=== PATIENT | female | born 1960 | race Caucasian/White ===

== ENCOUNTER 2016-11-13 06:10 | Emergency (ER) | payer MEDICARE ==
[~2016-11-13] VITALS: Ht 160 cm; Wt 90.7 kg
[2016-11-13] MEDS ORDERED: IV NORMAL SALINE 500ML BAG 500 ML IV ONE ×2 (06:30→07:45)
--- NOTE | 2016-11-13 06:46 | EKG ---
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
[2016-11-13 06:58] LABS: BASO # 0.1 x10^3/uL (0.0-0.2); BASO % 1 % (0-3); EOS % 0 % (0-3); HEMATOCRIT 31.1 % (36.0-47.0); HEMOGLOBIN 10.2 g/dL (12.0-15.5); LYMPH # 1.7 x10^3/uL (1.0-4.8); LYMPH % 17 % (24-48); MEAN CORPUSCULAR HEMOGLOBIN 30 pg (25-35); MEAN CORPUSCULAR HGB CONC 33 g/dL (31-37); MEAN CORPUSCULAR VOLUME 93 fL (79-100); MONO % 5 % (0-9); NEUT % 77 % (31-73); PLATELET COUNT 164 x10^3/uL (140-400); RED BLOOD COUNT 3.35 x10^6/uL (3.50-5.40); RED CELL DISTRIBUTION WIDTH 15.6 % (11.5-14.5)
[2016-11-13 07:08] LABS: OBC FLU VALID
[2016-11-13 07:12] LABS: CALCIUM 9.4 mg/dL (8.5-10.1); CREATININE 1.4 mg/dL (0.6-1.0); GFR 38.9; MAGNESIUM 1.9 mg/dL (1.8-2.4); POTASSIUM 4.1 mmol/L (3.5-5.1)
--- NOTE | 2016-11-13 07:20 | RAD ---
EXAM: Chest one view. HISTORY: Dyspnea. COMPARISON: 10/21/2008. FINDINGS: A frontal view of the chest is obtained. A left-sided pacer/defibrillator has its leads in the right atrium and right ventricle. There are changes of coronary artery bypass grafting. There is rotation to the left. There are mild diffuse interstitial opacities suggesting mild pulmonary edema. There is no pneumothorax or clear pleural effusion. The heart is not clearly enlarged given this projection. There is a calcified granuloma in the left base. IMPRESSION: 1. Suspect mild pulmonary edema. Correlate with volume status.
--- NOTE | 2016-11-13 07:41 | EKG ---
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 RI6.01 Unconfirmed report No previous ECG available for comparison Electronically Signed On 11-13-2016 14:18:10 REGISTERED NURSE AMBULATORY by Ramos Baca
--- NOTE | 2016-11-13 07:50 | PHYS DOC ---
Past Medical History Past Medical History: Anemia (iron def), CAD, CHF (ICM, combined failure, EF 35 %), Diabetes-Type II (with neuropathy), DVT (bilateral LE on coumadin), Pancreatitis (chronic), Renal Disease Additional Past Medical Histor: atherosclerosis, CKD, PAD, hyperparathyroid, legally blind Past Surgical History: Coronary Bypass Surgery, Pacemaker (ICD) Additional Past Surgical Histo: right toes amputated, Right femur ORIF Smoking: Cigarettes Alcohol Use: None Drug Use: None Adult General Chief Complaint Chief Complaint: SHORTNESS OF BREATH HPI HPI Patient is a 55 year old female with multiple medical problems who presents by EMS from nursing facility for an episode of nonbloody nonbilious emesis followed by confusion and dyspnea. She was noted to be in 80s at nursing facility. She states she wears 3L NC chronically and she was placed on 4L NC by EMS to improve O2 sats >90. She complains of mild nausea and crampy lower abdominal pain "like she needs to use the restroom". She was released from [facility] multiple times recently according to a note brought from nursing facility: 10/2016 after starting coumadin for bilateral LE DVTs; had right femur ORIF in 09/2016; and had admit for chest pain with elevated troponin and nonacute heart cath in 08/2016. She denies chest pain, cough, rhinorrhea, dyspnea, sore throat , headache, back pain, diarrhea, constipation. States her urinary catheter was changed this week. Review of Systems Review of Systems Constitutional: Denies fever or chills [] Eyes: Denies change in visual acuity, redness, or eye pain [] HENT: Denies nasal congestion or sore throat [] Respiratory: Denies cough or shortness of breath [] Cardiovascular: No additional information not addressed in HPI [] GI: Denies bloody stools or diarrhea [] : Denies dysuria or hematuria [] Musculoskeletal: Denies back pain or joint pain [] Integument: Denies rash or skin lesions [] Neurologic: Denies headache, focal weakness or sensory changes [] Endocrine: Denies polyuria or polydipsia [] Current Medications Current Medications Current Medications Medications (Trade) Dose Ordered Sig/Yosvany Start Time Stop Time Status Last Admin Dose Admin Sodium Chloride (Iv Sodium Chloride 0.9% 500ml Bag) 500 ml @ 500 mls/hr 1X ONCE 3/6/17 07:45 11/13/16 08:44 DC 11/13/16 08:47 500 MLS/HR Allergies Allergies Allergies Coded Allergies Type Severity Reaction Last Updated Verified adhesive tape Allergy Unknown 11/13/16 Yes lisinopril Allergy Unknown 11/13/16 Yes Physical Exam Physical Exam Constitutional: Well developed, well nourished, no acute distress, non-toxic appearance. [] HENT: Normocephalic, atraumatic, bilateral external ears normal, oropharynx moist, nose normal. [] Eyes: PERRLA, EOMI. [] Neck: Normal range of motion, no tenderness, supple, no stridor. [] Cardiovascular: Regular tachycardia [] Lungs & Thorax: Bilateral breath sounds clear to auscultation, normal respiratory effort [] Abdomen: Bowel sounds normal, soft, no tenderness. [] Skin: Warm, dry, no erythema, no rash. [] Back: No tenderness, no CVA tenderness. [] Extremities: ROM intact, 1+ bilateral LE edema. [] Neurologic: Alert and oriented to self and situation, normal motor function, normal sensory function, no focal deficits noted. [] Psychologic: Affect normal, judgement poor insight, mood normal. [] Current Patient Data Vital Signs Vital Signs Date Time Temp Pulse Resp B/P Pulse Ox O2 Delivery O2 Flow Rate FiO2 11/13/16 07:40 100.1 100.1 11/13/16 06:52 137 24 121/65 99 Nasal Cannula 2 Lab Values Laboratory Tests Test 11/13/16 06:10 11/13/16 06:47 Influenza Type A Antigen Negative (NEGATIVE) Influenza Type B Antigen Negative (NEGATIVE) White Blood Count 10.0x10^3/uL (4.0-11.0) Red Blood Count 3.35x10^6/uL (3.50-5.40) L Hemoglobin 10.2g/dL (12.0-15.5) L Hematocrit 31.1% (36.0-47.0) L Mean Corpuscular Volume 93fL (79-100) Mean Corpuscular Hemoglobin 30pg (25-35) Mean Corpuscular Hemoglobin Concent 33g/dL (31-37) Red Cell Distribution Width 15.6% (11.5-14.5) H Platelet Count 164x10^3/uL (140-400) Neutrophils (%) (Auto) 77% (31-73) H Lymphocytes (%) (Auto) 17% (24-48) L Monocytes (%) (Auto) 5% (0-9) Eosinophils (%) (Auto) 0% (0-3) Basophils (%) (Auto) 1% (0-3) Neutrophils # (Auto) 7.7x10^3uL (1.8-7.7) Lymphocytes # (Auto) 1.7x10^3/uL (1.0-4.8) Monocytes # (Auto) 0.5x10^3/uL (0.0-1.1) Eosinophils # (Auto) 0.0x10^3/uL (0.0-0.7) Basophils # (Auto) 0.1x10^3/uL (0.0-0.2) Prothrombin Time 22.9SEC (11.7-14.0) H Prothrombin Time INR 2.2 (0.8-1.1) H PTT 56SEC (24-38) H Sodium Level 140mmol/L (136-145) Potassium Level 4.1mmol/L (3.5-5.1) Chloride Level 101mmol/L (98-107) Carbon Dioxide Level 29mmol/L (21-32) Anion Gap 10 (6-14) Blood Urea Nitrogen 47mg/dL (7-20) H Creatinine 1.4mg/dL (0.6-1.0) H Estimated GFR (Cockcroft-Gault) 38.9 Glucose Level 212mg/dL (70-99) H Lactic Acid Level 2.3mmol/L (0.4-2.0) H Calcium Level 9.4mg/dL (8.5-10.1) Magnesium Level 1.9mg/dL (1.8-2.4) Troponin I Quantitative 1.560ng/mL (0.000-0.055) UQ-Hec-F-Type Natriuretic Peptide 85428pw/mL (0-124) H Laboratory Tests 11/13/16 06:47 Laboratory Tests 11/13/16 06:47 EKG EKG EKG as interpreted by me as sinus tachycardia, rate 136, interventricular block , slight depressions in lateral leads with no ST elevations, normal intervals, no ectopy, 0617 EKG as interpreted by me as sinus tachycardia, rate 121, interventricular block , slight depressions in lateral leads with no ST elevations, normal intervals, no ectopy, unchanged, 0738 Radiology/Procedures Radiology/Procedures Chest x-ray as interpreted by me with mild bilateral vascular congestion suggestive of pulmonary edema, no focal infiltrate Course & Med Decision Making Course & Med Decision Making Pertinent Labs and Imaging studies reviewed. (See chart for details) Laboratory evaluation reveals significantly elevated troponin and elevated proBNP. She has no EKG changes and she remains without chest discomfort or difficulty breathing. Her is at bedside and states she appears to have normal mental status. She has been titrated down to 2L NC. Will admit for NSTEMI with concern for possible PE. Discussed case with Dr. Restrepo, who will admit. Discussed case with MARCELO Nazario cardiology, who will see her. After discussion with inpatient services, pt requests to be transferred to [facility] for further care. Discussed concern for NSTEMI vs PE with Nia, cardiology nurse at [facility], who agrees to accept the patient on Dr. Alcantara's service. Her INR is therapeutic at this time. She continues without symptoms other than chronic right hip pain. She will be transferred by EMS in guarded condition. Dragon Disclaimer Dragon Disclaimer This electronic medical record was generated, in whole or in part, using a voice recognition dictation system. Departure Departure Impression: Primary Impression: NSTEMI (non-ST elevated myocardial infarction) Additional Impression: Acute exacerbation of CHF (congestive heart failure) Disposition: ADMITTED INPATIENT Condition: GUARDED Referrals: UNKNOWN PCP NAME (PCP) Problem Qualifiers Additional Impression: Acute exacerbation of CHF (congestive heart failure) Congestive heart failure type: combined Qualified Code: I50.43 - Acute on chronic combined systolic (congestive) and diastolic (congestive) heart failure Berkley CAMPOS MD Nov 13, 2016 07:50
[2016-11-13 08:54] LABS: INR 2.2 (0.8-1.1); PROTHROMBIN TIME PATIENT 22.9 SEC (11.7-14.0)
[2016-11-13] MEDS ORDERED: FENTANYL PF 100 MCG/2 ML VIAL. IV PRN (09:00)
[2016-11-13] MEDS ORDERED: ONDANSETRON PF 4 MG/2 ML VIAL. IV PRN (09:00)
[2016-11-13] MEDS ORDERED: ACETAMINOPHEN 325 MG TABLET. PO PRN (09:00)
--- NOTE | 2016-11-13 09:03 | ACF ---
Admit Criteria Forms Admit Criteria Forms Admit Criteria Forms MYOCARDIAL INFARCTION Clinical Indications for Admission to Inpatient Care (Place 'X' for any and all applicable criteria): Admission is indicated for ANY ONE of the following (1)(2)(3)(4): [X]I. Acute LA [ ]II. Contraindications and/or Inappropriate clinical situations for Observational Care in patients with Myocardial Infarction, when ANY ONE of the following is required: [ ]a) Patient with High risk of cardiac embolism (e.g, patients with previous cardiac embolism, LVEF < 40%, age >75 and patients with prosthetic valve) 18 [ ]b) Patient with Moderate risk including DM patient, CAD and patient aged 65-75 18 [ ]c) Patient with any change in cardiac biomarker especially troponin should be managed as high risk in an inpatient setting 19 [ ]d) Physician judgement irrespective of ECG and other diagnostic findings 20 [ ]III.General contraindications and/or Inappropriate clinical situations for Observational Care in patients with Myocardial Infarction, when ANY ONE of the following is required: [ ]a) Prediction of prolongation of LOS based on ANY ONE of the following may be considered as a contraindication for observational care 2, 3, 4, 5, 6, 7, 8, 9, 10, 11 [ ]i) Age > 65 yrs. [ ]ii) Patient arriving by ambulance [ ]iii) Patient with high acuity [ ]iv) Patient requiring vital sign monitoring [ ]v) Patient on IV medication [ ]b) Systolic blood pressures 180mmHg 3,12 [ ]c) Patient with altered mental status including delirium and other alteration of consciousness, (3) [ ]d) Patient whose discharge disposition will be to a care home home or rehabilitation home should not be managed in Emergency Department Observation Unit. CMS rule requires 3 days hospital stay before such placement. 3,13 [ ]e) Patient with failure to thrive due to broad array of etiologies 3 ,16,17 [ ]f) Inability to ambulate 3,14 Extended stay beyond goal length of stay may be needed for (1)(18)(20)(24)(25): [ ]a) Hemodynamic instability, persisting symptoms after intensive medical management, or recurring severe, prolonged symptoms [ ]b) Intravascular procedural complications such as acute vessel closure, stent thrombosis, stent malposition, or vessel dissection (26)(27)(28) [ ]c) Extravascular procedural complications such as retroperitoneal hematoma , pericardial effusion, or cardiac tamponade [ ]d) Entry site complications causing bleeding, hematoma or distal ischemia and requiring ongoing monitoring, surgical repair or surgical thrombectomy(29) [ ]e) Dangerous arrhythmia [ ]f) Complicated percutaneous coronary intervention (e.g., unsuccessful percutaneous coronary intervention or percutaneous coronary intervention of non- torres martinez vessel) [ ]g) Urgent or emergent surgery for complications of LA (e.g., ventricular rupture, valvular insufficiency) [ ]h) Surgical revascularization via coronary artery bypass graft [ ]i) Heart failure (e.g., pulmonary edema) [ ]j) Unstable pulmonary comorbidities, including COPD or pneumonia (31) [ ]k) Acute renal failure The original [employer] content created by [employer] has been revised. The portions of the content which have been revised are identified through the use of italic text or in bold, and [facility] has neither reviewed nor approved the modified material. All other unmodified content is copyright [facility] Please see references footnoted in the original [facility] edition 2016 ARCELIA ALLEN Nov 13, 2016 09:02
[2016-11-13 09:05] LABS: BILIRUBIN,URINE NEGATIVE (NEG); GLUCOSE,URINE NEGATIVE (NEG); NITRITE,URINE NEGATIVE (NEG); PROTEIN,URINE >=300 mg/dL (NEG-TRACE); UROBILINOGEN,URINE 0.2 mg/dL (0.2 mg/dL)
[2016-11-13 09:12] LABS: BACTERIA,URINE MANY /HPF (0-FEW)
--- NOTE | 2016-11-13 09:12 | RAD ---
CT scan of the abdomen and pelvis without contrast 11/13/2016 Clinical history: Lower abdominal pain with fever and nausea and vomiting Technique: Unenhanced, contiguous, 5 mm axial sections were obtained through the abdomen and pelvis. One or more of the following individualized dose reduction techniques were utilized for this study: 1. Automated exposure control. 2. Adjustment of the mA and/or kV according to patient size. 3. Use of iterative reconstruction technique. Findings: Comparison study dated 05/09/2008. Images through the lung bases demonstrate mild cardiomegaly. A 1.1 cm calcified granuloma is seen in the left lower lobe. Areas of subsegmental atelectasis are seen involving both lower lobes and the right middle lobe The liver, spleen, pancreas, adrenal glands and kidneys are within normal limits. Moderate atherosclerotic calcification of the abdominal aorta and its branches is noted. The abdominal aorta tapers normally. No free fluid or free air is seen within the abdomen. There is no evidence of bowel obstruction. The appendix is not visualized. No inflammatory changes are seen surrounding the cecum. Images through the pelvis demonstrate the urinary bladder distended with urine. A Celis catheter is noted in place. Calcified fibroids are seen within the uterus which measure 3.5 and 5.5 cm in size. No free fluid is seen. Minimal S shaped curvature of the thoracolumbar spine is noted. Degenerative changes are seen involving the lower thoracic and throughout the lumbar spine and both hips. Impression: No acute abnormality is seen.
--- NOTE | 2016-11-13 09:25 | PDOC2 ---
CARDIAC CONSULT DATE OF CONSULT Date of Consult DATE: 11/13/16 TIME: 09:23 REASON FOR CONSULT Reason for Consult: NSTEMI REFERRING PHYSICIAN Referring Physician: Dr. Lincoln SOURCE Source: Chart review, Patient HISTORY OF PRESENT ILLNESS HISTORY OF PRESENT ILLNESS This is a 55 yo female who presented from nursing facility secondary to emesis, dyspnea, and altered mental status. Patient was found to have elevated troponin level in ED, which prompted this consult. CURRENT MEDICATIONS CURRENT MEDICATIONS Current Medications Medications (Trade) Dose Ordered Sig/Yosvany Route PRN Reason Start Time Stop Time Status Last Admin Dose Admin Sodium Chloride 500 ml @ 500 mls/hr 1X ONCE IV 11/13/16 06:30 11/13/16 07:29 DC 11/13/16 06:30 Sodium Chloride (Iv Sodium Chloride 0.9% 500ml Bag) 500 ml @ 500 mls/hr 1X ONCE IV 11/13/16 07:45 11/13/16 08:44 DC 11/13/16 08:47 ALLERGIES ALLERGIES: Coded Allergies: adhesive tape (Verified Allergy, Unknown, 11/13/16) lisinopril (Verified Allergy, Unknown, 11/13/16) VITALS VITALS Vital Signs Date Time Temp Pulse Resp B/P Pulse Ox O2 Delivery O2 Flow Rate FiO2 11/13/16 07:40 100.1 100.1 11/13/16 06:52 137 24 121/65 99 Nasal Cannula 2 LABS Lab: Laboratory Tests Test 11/13/16 06:10 11/13/16 06:47 11/13/16 08:50 Influenza Type A Antigen Negative (NEGATIVE) Influenza Type B Antigen Negative (NEGATIVE) White Blood Count 10.0x10^3/uL (4.0-11.0) Red Blood Count 3.35x10^6/uL (3.50-5.40) Hemoglobin 10.2g/dL (12.0-15.5) Hematocrit 31.1% (36.0-47.0) Mean Corpuscular Volume 93fL (79-100) Mean Corpuscular Hemoglobin 30pg (25-35) Mean Corpuscular Hemoglobin Concent 33g/dL (31-37) Red Cell Distribution Width 15.6% (11.5-14.5) Platelet Count 164x10^3/uL (140-400) Neutrophils (%) (Auto) 77% (31-73) Lymphocytes (%) (Auto) 17% (24-48) Monocytes (%) (Auto) 5% (0-9) Eosinophils (%) (Auto) 0% (0-3) Basophils (%) (Auto) 1% (0-3) Neutrophils # (Auto) 7.7x10^3uL (1.8-7.7) Lymphocytes # (Auto) 1.7x10^3/uL (1.0-4.8) Monocytes # (Auto) 0.5x10^3/uL (0.0-1.1) Eosinophils # (Auto) 0.0x10^3/uL (0.0-0.7) Basophils # (Auto) 0.1x10^3/uL (0.0-0.2) Prothrombin Time 22.9SEC (11.7-14.0) Prothromb Time International Ratio 2.2 (0.8-1.1) Activated Partial Thromboplast Time 56SEC (24-38) Sodium Level 140mmol/L (136-145) Potassium Level 4.1mmol/L (3.5-5.1) Chloride Level 101mmol/L (98-107) Carbon Dioxide Level 29mmol/L (21-32) Anion Gap 10 (6-14) Blood Urea Nitrogen 47mg/dL (7-20) Creatinine 1.4mg/dL (0.6-1.0) Estimated GFR (Cockcroft-Gault) 38.9 Glucose Level 212mg/dL (70-99) Lactic Acid Level 2.3mmol/L (0.4-2.0) Calcium Level 9.4mg/dL (8.5-10.1) Magnesium Level 1.9mg/dL (1.8-2.4) Troponin I Quantitative 1.560ng/mL (0.000-0.055) RZ-Bzc-M-Type Natriuretic Peptide 88855if/mL (0-124) Urine Collection Type U cath Urine Color Yellow Urine Clarity Cloudy Urine pH 8.0 Urine Specific [place] 1.020 Urine Protein >=300mg/dL (NEG-TRACE) Urine Glucose (UA) Negativemg/dL (NEG) Urine Ketones (Stick) Negativemg/dL (NEG) Urine Blood Moderate (NEG) Urine Nitrite Negative (NEG) Urine Bilirubin Negative (NEG) Urine Urobilinogen Dipstick 0.2mg/dL (0.2 mg/dL) Urine Leukocyte Esterase Moderate (NEG) Urine RBC 3-5/HPF (0-2) Urine WBC 1-4/HPF (0-4) Urine Amorphous Sediment Present/HPF Urine Bacteria Many/HPF (0-FEW) ERIKA RIDDLE APRN Nov 13, 2016 09:25
[2016-11-13] MEDS ORDERED: ASPI81TA9 PO (12:19)
[2016-11-13] MEDS ORDERED: BISA-42 PO (12:22)
[2016-11-13] MEDS ORDERED: FURO40TA4 PO (12:37)
[2016-11-13] MEDS ORDERED: FERR325T72 PO (12:37)
[2016-11-13] MEDS ORDERED: ONDA4TAB7 PO (12:37)
[2016-11-13] MEDS ORDERED: CYCL5TAB PO (12:37)
[2016-11-13] MEDS ORDERED: NITR0.4T SL (12:37)
[2016-11-13] MEDS ORDERED: LOSA25TA PO (12:37)
[2016-11-13] MEDS ORDERED: ENOX80DI SQ (12:37)
[2016-11-13] MEDS ORDERED: GABA400C PO (12:37)
[2016-11-13] MEDS ORDERED: CARV3.122 PO (12:37)
[2016-11-13] MEDS ORDERED: OXYC5CAP3 PO (12:38)
[2016-11-13] MEDS ORDERED: PRED-299 PO (12:59)
[2016-11-13] MEDS ORDERED: CRESTOR20 MG PO (12:59)
[2016-11-13] MEDS ORDERED: WARF5TAB PO (13:00)
[2016-11-13] MEDS ORDERED: SPIR25TA PO (13:00)
[2016-11-13 15:35] VITALS: BP 105/57
== END 2016-11-13 16:00 | disposition short-term general hospital (02) ==
LOC: ER 06:10 → CVICU 08:00 → UNDOADMIN 08:00 → ER 16:00
DX: I21.4 Non-ST elevation (NSTEMI) myocardial infarction (principal); I13.0 Hypertensive heart and chronic kidney disease with heart failure and stage 1 through stage 4 chronic kidney disease, or unspecified chronic kidney disease; E11.40 Type 2 diabetes mellitus with diabetic neuropathy, unspecified; Z95.0 Presence of cardiac pacemaker; I25.10 Atherosclerotic heart disease of native coronary artery without angina pectoris; E11.22 Type 2 diabetes mellitus with diabetic chronic kidney disease; N18.9 Chronic kidney disease, unspecified; I50.9 Heart failure, unspecified; Z95.1 Presence of aortocoronary bypass graft; H54.8 Legal blindness, as defined in USA; E21.3 Hyperparathyroidism, unspecified; F17.210 Nicotine dependence, cigarettes, uncomplicated; Z79.01 Long term (current) use of anticoagulants; Z88.8 Allergy status to other drugs, medicaments and biological substances; Z86.718 Personal history of other venous thrombosis and embolism
CPT/HCPCS: 36415; 71010; 74176; 80048; 81001; 83605; 83735; 83880; 84484; 85027; 85610; 85730; 87040; 87086; 87205; 87804; 93005; 96361; 96374; 96375; 99285; J2405; J3010; J7040

== ENCOUNTER 2016-12-31 15:47 | Emergency (ER) | payer MEDICARE ==
[~2016-12-31] VITALS: Ht 154.9 cm; Wt 68.0 kg
[~2016-12-31 15:47] MED LIST: ASPI81TA9 PO; BISA-42 PO; CARV3.122 PO; CRESTOR20 MG PO; CYCL5TAB PO; ENOX80DI SQ; FERR325T72 PO; FURO40TA4 PO; GABA400C PO; LOSA25TA PO; NITR0.4T SL; ONDA4TAB7 PO; OXYC5CAP3 PO; PRED-299 PO; SPIR25TA PO; WARF5TAB PO
[2016-12-31 16:00] VITALS: BP 143/80
[2016-12-31] MEDS ORDERED: IV NORMAL SALINE 500ML BAG 500 ML IV ONE (16:30)
--- NOTE | 2016-12-31 16:37 | PHYS DOC ---
Past Medical History Past Medical History: Anemia, CAD, CHF, Diabetes-Type II, DVT, Pancreatitis, Renal Disease Additional Past Medical Histor: atherosclerosis, CKD, PAD, hyperparathyroid, legally blind Past Surgical History: Coronary Bypass Surgery, Pacemaker Additional Past Surgical Histo: right toes amputated, Right femur ORIF Alcohol Use: None Drug Use: None Adult General Chief Complaint Chief Complaint: ABDOMINAL PAIN HPI HPI 56-year-old female who's visibly pale and tachypneic upon arrival satting in the low 90s and requiring supplemental oxygen when she normally does not require any. She complains of some mild left upper quadrant pain but no other symptoms. She states her stools have been loose and dark but she states she is on iron she is unable to tell me if they've been darker than normal. She is also stated she's had some nausea and vomiting but she denies any blood or coffee-ground emesis. Currently she denies any specific complaints other than mild shortness of breath. She has IV in place for chronic wound infection for which she receives antibiotic therapy. She is presenting from a rehabilitation facility for right-sided hip fracture. Review of Systems Review of Systems Constitutional: Denies fever or chills [] Eyes: Denies change in visual acuity, redness, or eye pain [] HENT: Denies nasal congestion or sore throat [] Respiratory: Denies cough, has shortness of breath [] Cardiovascular: No additional information not addressed in HPI [] GI: Denies abdominal pain, has nausea, has vomiting, bloody stools or diarrhea [ ] : Denies dysuria or hematuria [] Musculoskeletal: Denies back pain or joint pain [] Integument: Denies rash or skin lesions [] Neurologic: Denies headache, focal weakness or sensory changes [] Endocrine: Denies polyuria or polydipsia [] Current Medications Current Medications Current Medications Medications (Trade) Dose Ordered Sig/Yosvany Start Time Stop Time Status Last Admin Dose Admin Sodium Chloride (Iv Sodium Chloride 0.9% 500ml Bag) 500 ml @ 500 mls/hr 1X ONCE 12/31/16 16:30 12/31/16 17:29 DC 12/31/16 17:05 500 MLS/HR Allergies Allergies Allergies Coded Allergies Type Severity Reaction Last Updated Verified I S O L A T I O N *CONTACT* Allergy Unknown 11/20/16 Yes adhesive tape Allergy Unknown 11/13/16 Yes lisinopril Allergy Unknown 11/13/16 Yes Physical Exam Physical Exam Constitutional: Well developed, well nourished, no acute distress, non-toxic appearance. [] HENT: Normocephalic, atraumatic, bilateral external ears normal, oropharynx moist, no oral exudates, nose normal. [] Eyes: PERRLA, EOMI, conjunctiva normal, no discharge. [] Neck: Normal range of motion, no tenderness, supple, no stridor. [] Cardiovascular:Heart rate regular rhythm, no murmur [] Lungs & Thorax: Bilateral breath sounds clear to auscultation, tachypneic [] Abdomen: Bowel sounds normal, soft, no tenderness, no masses, no pulsatile masses. [] Skin: Warm, dry, no erythema, no rash, pale. [] Back: No tenderness, no CVA tenderness. [] Extremities: No tenderness, no cyanosis, no clubbing, ROM intact, no edema. [] Neurologic: Alert and oriented X 3, normal motor function, normal sensory function, no focal deficits noted. [] Psychologic: Affect normal, judgement normal, mood normal. [] Current Patient Data Vital Signs Vital Signs Date Time Temp Pulse Resp B/P Pulse Ox O2 Delivery O2 Flow Rate FiO2 12/31/16 16:00 101.1 113 32 143/80 91 Nasal Cannula 2 101.1 Lab Values Laboratory Tests Test 12/31/16 16:08 12/31/16 17:05 12/31/16 17:18 White Blood Count 11.7x10^3/uL (4.0-11.0) H Red Blood Count 3.07x10^6/uL (3.50-5.40) L Hemoglobin 8.6g/dL (12.0-15.5) L Hematocrit 27.1% (36.0-47.0) L Mean Corpuscular Volume 88fL (79-100) Mean Corpuscular Hemoglobin 28pg (25-35) Mean Corpuscular Hemoglobin Concent 32g/dL (31-37) Red Cell Distribution Width 17.2% (11.5-14.5) H Platelet Count 287x10^3/uL (140-400) Neutrophils (%) (Auto) 79% (31-73) H Lymphocytes (%) (Auto) 13% (24-48) L Monocytes (%) (Auto) 6% (0-9) Eosinophils (%) (Auto) 2% (0-3) Basophils (%) (Auto) 1% (0-3) Neutrophils # (Auto) 9.2x10^3uL (1.8-7.7) H Lymphocytes # (Auto) 1.6x10^3/uL (1.0-4.8) Monocytes # (Auto) 0.7x10^3/uL (0.0-1.1) Eosinophils # (Auto) 0.2x10^3/uL (0.0-0.7) Basophils # (Auto) 0.1x10^3/uL (0.0-0.2) Erythrocyte Sedimentation Rate 108 (0-25) H Prothrombin Time 19.8SEC (11.7-14.0) H Prothrombin Time INR 1.8 (0.8-1.1) H D-Dimer (Elizabeth) 0.97ug/mlFEU (0.00-0.50) H Sodium Level 139mmol/L (136-145) Potassium Level 4.6mmol/L (3.5-5.1) Chloride Level 102mmol/L (98-107) Carbon Dioxide Level 26mmol/L (21-32) Anion Gap 11 (6-14) Blood Urea Nitrogen 38mg/dL (7-20) H Creatinine 1.4mg/dL (0.6-1.0) H Estimated GFR (Cockcroft-Gault) 38.8 BUN/Creatinine Ratio 27 (6-20) H Glucose Level 134mg/dL (70-99) H Calcium Level 9.0mg/dL (8.5-10.1) Total Bilirubin 0.3mg/dL (0.2-1.0) Aspartate Amino Transferase (AST) 17U/L (15-37) Alanine Aminotransferase (ALT) 18U/L (14-59) Alkaline Phosphatase 62U/L (46-116) Total Protein 7.0g/dL (6.4-8.2) Albumin 2.7g/dL (3.4-5.0) L Albumin/Globulin Ratio 0.6 (1.0-1.7) L Lactic Acid Level 1.3mmol/L (0.4-2.0) Urine Collection Type U cath Urine Color Yellow Urine Clarity Cloudy Urine pH 5.5 Urine Specific [place] 1.015 Urine Protein >=300mg/dL (NEG-TRACE) Urine Glucose (UA) Negativemg/dL (NEG) Urine Ketones (Stick) Negativemg/dL (NEG) Urine Blood Moderate (NEG) Urine Nitrite Negative (NEG) Urine Bilirubin Negative (NEG) Urine Urobilinogen Dipstick 0.2mg/dL (0.2 mg/dL) Urine Leukocyte Esterase Moderate (NEG) Urine RBC 6-10/HPF (0-2) Urine WBC 5-10/HPF (0-4) Urine Squamous Epithelial Cells Few/LPF Urine Transitional Epithelial Cells Occ/LPF Urine Bacteria Few/HPF (0-FEW) Urine Mucus Slight/LPF Stool Occult Blood Positive (NEG) Laboratory Tests 12/31/16 16:08 Laboratory Tests 12/31/16 16:08 EKG EKG EKG as interpreted by me shows a sinus tachycardia with a rate of 101 bpm. There is no evidence of ischemic changes. Intervals are normal. Radiology/Procedures Radiology/Procedures FINDINGS Small bilateral pleural effusions identified. Patchy bibasilar lung airspace opacities likely pneumonia or atelectasis. No evidence of free air noted in the abdomen. Mild cardiomegaly. The visualized non contrasted liver, spleen, adrenals grossly appears unremarkable. The evaluation solid organs is limited lack of IV contrast.Evaluation the bowel is limited lack of oral contrast. The gallbladder is not visualized. The stomach is mildly distended with food material. No evidence of intrarenal collecting system calculi or hydronephrosis identified. Appendix is not clearly identified. The visualized pancreas appears somewhat atrophic. Few distended small bowel loops identified in the abdomen. There is mild thickened appearance of the wall of the descending colon and the rectum with minimal questionable surrounding fat stranding however examination limited due to streak artifact from right hip hardware. Calcified fibroid identified in the left side of the uterus measuring 6 centimeters. Right hip hardware identified. Mild anasarca identified. Mild degenerative changes lumbar spine. Small fat containing anterior abdominal wall hernia identified in the right lower quadrant of the abdomen. Impression : 1. Mild thickened appearance of the wall of the descending colon and the rectum with surrounding fat stranding could be secondary to nondistention colitis with proctitis. Correlate clinically. Evaluation is limited due to streak artifact from right hip hardware. 2. Few minimally distended small bowel loops, nonspecific. 3. Mild bibasilar lung airspace opacity likely atelectasis or infiltrates with trace bilateral pleural effusions. 4. Mild anasarca probably due to congestion. Examination: Ultrasound bilateral lower extremity venous History: History of bilateral lower extremity swelling or ankle. TECHNIQUE Grayscale, color Doppler 2D, spectral waveform analysis of the bilateral lower extremity venous system were performed Findings The visualized common femoral vein, superficial femoral vein, popliteal vein demonstrate normal compression augmentation of flow. The visualized calf veins are patent. Examination is limited due to patient body habitus and due to bilateral lower extremity edema. IMPRESSION 1. No evidence of deep venous thrombosis identified in the bilateral lower extremity venous system. 2. Bilateral lower extremity edema. Course & Med Decision Making Course & Med Decision Making Pertinent Labs and Imaging studies reviewed. (See chart for details) This 56-year-old female who is visibly pale cachectic and will receive full laboratory workup. At this time she is hypoxic on room air and requiring supplemental oxygen. Hemoccult will be obtained and laboratory workup with a type and screen will also be obtained and blood cultures and lactate will also be obtained. She has a chronic wound infection to her left lower extremity for which she is receiving antibiotics. At this time, the differential is sepsis versus GI bleed as major possiblities. A 500 mL bolus will be given as she does have history of congestive failure. A dose of Protonix was ordered. Morphine was given for pain. At this time, the patient is requesting transfer to [facility] as all her previous care has been coordinated to that facility. Transfer was facilitated to a room at that facility with the accepting physician. Hospitalist, Dr. Baldwin, was updated on the situation but a room was able to be obtained prior to the patient being admitted to our facility. CT of her abdomen/pelvis demonstrated possible colitis vs. proctitis. These findings were communicated to the accepting physician. Elieser Disclaimer Elieser Disclaimer This electronic medical record was generated, in whole or in part, using a voice recognition dictation system. Departure Departure Impression: Primary Impression: GI bleed Additional Impressions: Fever Colitis Disposition: 05 TRANSFER OTHER Admitting Physician: Other Condition: STABLE Referrals: UNKNOWN PCP NAME (PCP) Problem Qualifiers SOLOMON MENDENHALL DO Dec 31, 2016 16:37
[2016-12-31 16:43] LABS: BASO # 0.1 x10^3/uL (0.0-0.2); BASO % 1 % (0-3); EOS % 2 % (0-3); HEMATOCRIT 27.1 % (36.0-47.0); HEMOGLOBIN 8.6 g/dL (12.0-15.5); LYMPH # 1.6 x10^3/uL (1.0-4.8); LYMPH % 13 % (24-48); MEAN CORPUSCULAR HEMOGLOBIN 28 pg (25-35); MEAN CORPUSCULAR HGB CONC 32 g/dL (31-37); MEAN CORPUSCULAR VOLUME 88 fL (79-100); MONO % 6 % (0-9); NEUT % 79 % (31-73); PLATELET COUNT 287 x10^3/uL (140-400); RED BLOOD COUNT 3.07 x10^6/uL (3.50-5.40); RED CELL DISTRIBUTION WIDTH 17.2 % (11.5-14.5); WHITE BLOOD COUNT 11.7 x10^3/uL (4.0-11.0)
[2016-12-31 16:53] LABS: CREATININE 1.4 mg/dL (0.6-1.0); GFR 38.8; POTASSIUM 4.6 mmol/L (3.5-5.1)
[2016-12-31 16:59] LABS: ALBUMIN 2.7 g/dL (3.4-5.0); ALBUMIN/GLOBULIN RATIO 0.6 (1.0-1.7); TOTAL BILIRUBIN 0.3 mg/dL (0.2-1.0)
[2016-12-31 17:29] LABS: BILIRUBIN,URINE NEGATIVE (NEG); GLUCOSE,URINE NEGATIVE (NEG); NITRITE,URINE NEGATIVE (NEG); PH,URINE 5.5; PROTEIN,URINE >=300 mg/dL (NEG-TRACE); UROBILINOGEN,URINE 0.2 mg/dL (0.2 mg/dL)
[2016-12-31 17:37] LABS: BACTERIA,URINE FEW /HPF (0-FEW); SQUAMOUS EPITHELIAL CELL,UR FEW /LPF
[2016-12-31 17:38] LABS: NEG OBC FOB NEG; POS OBC FOB POS
[2016-12-31 18:11] LABS: INR 1.8 (0.8-1.1); PROTHROMBIN TIME PATIENT 19.8 SEC (11.7-14.0)
[2016-12-31] MEDS ORDERED: PANTOPRAZOLE SODIUM IV 80 MG in IV NORMAL SALINE 100ML 100 ML IV SCH ×2 (18:30→19:00)
[2016-12-31] MEDS ORDERED: ONDANSETRON PF 4 MG/2 ML VIAL. IV PRN ×2 (18:30→18:58)
--- NOTE | 2016-12-31 18:43 | RAD ---
Examination: CT abdomen pelvis without contrast HISTORY Abdominal pain left upper quadrant COMPARISON None available. TECHNIQUE Axial CT images of the abdomen is performed without contrast. Coronal sagittal reformats were performed. Exposure: One or more of the following dose reduction technique were utilized for this examination: 1. Automated exposure control. 2.Adjustment of MA and /or KV according to patient size. 3. Use of iterative reconstruction technique. FINDINGS Small bilateral pleural effusions identified. Patchy bibasilar lung airspace opacities likely pneumonia or atelectasis. No evidence of free air noted in the abdomen. Mild cardiomegaly. The visualized non contrasted liver, spleen, adrenals grossly appears unremarkable. The evaluation solid organs is limited lack of IV contrast.Evaluation the bowel is limited lack of oral contrast. The gallbladder is not visualized. The stomach is mildly distended with food material. No evidence of intrarenal collecting system calculi or hydronephrosis identified. Appendix is not clearly identified. The visualized pancreas appears somewhat atrophic. Few distended small bowel loops identified in the abdomen. There is mild thickened appearance of the wall of the descending colon and the rectum with minimal questionable surrounding fat stranding however examination limited due to streak artifact from right hip hardware. Calcified fibroid identified in the left side of the uterus measuring 6 centimeters. Right hip hardware identified. Mild anasarca identified. Mild degenerative changes lumbar spine. Small fat containing anterior abdominal wall hernia identified in the right lower quadrant of the abdomen. Impression : 1. Mild thickened appearance of the wall of the descending colon and the rectum with surrounding fat stranding could be secondary to nondistention colitis with proctitis. Correlate clinically. Evaluation is limited due to streak artifact from right hip hardware. 2. Few minimally distended small bowel loops, nonspecific. 3. Mild bibasilar lung airspace opacity likely atelectasis or infiltrates with trace bilateral pleural effusions. 4. Mild anasarca probably due to congestion. Electronically signed by: Abelardo Yu (Dec 31, 2016 18:42:37)
[2016-12-31] MEDS ORDERED: NITROGLYCERIN SUBLINGUAL 0.4 MG BOTTLE OF 25. SL PRN (19:00)
[2016-12-31] MEDS ORDERED: ACETAMINOPHEN 325 MG TABLET. PO PRN (19:00)
[2016-12-31] MEDS ORDERED: IV NORMAL SALINE 1000ML BAG 1,000 ML IV SCH (19:00)
[2016-12-31] MEDS ORDERED: BISACODYL 5 MG TABLET.DR. PO PRN (19:00)
--- NOTE | 2016-12-31 19:09 | PDOC1 ---
"History and Physical Date of Admission Date of Admission DATE: 12/31/16 TIME: 19:00 Identification/Chief Complaint Chief Complaint abd pain, black stools Problems: Source Source: Caregiver, Chart review, Patient History of Present Illness History of Present Illness 56 y.o obese female, rather poor historian, resident of [facility] sent in [facility] of left sided abd pain, black stools. On ferrous sulfate , but also takes ASA, lovenox and warfarin likely from a Rt hip sx she had done Oct 2016 at ,. She actually follows at (wants to transfer to ), but was sent here bec we are the nearest facility. VS ok, BP on high side but febrile, bucket at bedside, nauseaus. 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 FOBT positive at ER, hgb 8, WBC 11 on pred- chronically sounds like. Sinus tachy 113, mildy tachypneic CT abd shows proctocoliyis or colitis, no esr. Atelectasis and small pleural effusion, hardware seen on Rt hip Past Medical History Cardiovascular: HTN Pulmonary: Bronchitis CENTRAL NERVOUS SYSTEM: Dementia GI: Constipation Heme/Onc: Anemia NOS Hepatobiliary: No pertinent hx Psych: No pertinent hx, Depression Musculoskeletal: low back pain Rheumatologic: Other (OA) Renal/: Chronic renal insuff Endocrine: Diabetes Past Surgical History Past Surgical History: Total hip replacement (toes amputated all Rt), Other Family History Family History: No Significant Social History Smoke: No ALCOHOL: none Drugs: None Current Medications Current Medications Current Medications Sodium Chloride (Iv Sodium Chloride 0.9% 500ml Bag) 500 ml @ 500 mls/hr 1X ONCE IV Last administered on 12/31/16t 17:05; Start 12/31/16 at 16:30; Stop at 17:29; Status DC Ondansetron HCl 4 mg 4 mg PRN Q8HRS PRN IV NAUSEA/VOMITING; Start 12/31/16 at 18:30; Stop 01/01/17 at 18:29 Sodium Chloride 1,000 ml @ 100 mls/hr Q10H IV ; Start 12/31/16 at 19:00; Stop 01/01/17 at 18:59 Pantoprazole Sodium 80 mg/ Sodium Chloride 100 ml @ 10 mls/hr Q10H IV ; Start 12/31/16 at 19:00 Pantoprazole Sodium/Sodium Chloride (Protonix Iv/Iv Sodium Chloride 0.9% 100ml) 100 ml @ 10 mls/hr Q10H IV ; Start 12/31/16 at 18:30; Status UNV Active Scripts Active Reported Coumadin (Warfarin Sodium) 5 Mg Tablet 5 Mg PO DAILY Aldactone (Spironolactone) 25 Mg Tablet 25 Mg PO DAILY Crestor (Rosuvastatin Calcium) 20 Mg Tablet 1 Tab PO DAILY Deltasone (Prednisone) 20 Mg Tablet 20 Mg PO Oxycodone Hcl 5 Mg Capsule 5 Mg PO PRN Zofran (Ondansetron Hcl) 4 Mg Tablet 4 Mg PO BID PRN Nitrostat (Nitroglycerin) 0.4 Mg Tab.subl 0.4 Mg SL PRN Q5MIN PRN Cozaar (Losartan Potassium) 25 Mg Tablet 25 Mg PO DAILY Neurontin (Gabapentin) 400 Mg Capsule 400 Mg PO TID Furosemide 40 Mg Tablet 40 Mg PO DAILY Feosol (Ferrous Sulfate) 325 Mg Tablet 325 Mg PO DAILY Lovenox (Enoxaparin Sodium) 80 Mg/0.8 Ml Disp.syrin 80 Mg SQ Cyclobenzaprine Hcl 5 Mg Tablet 5 Mg PO TID Carvedilol 3.125 Mg Tablet 1 Tab PO BID Dulcolax (Bisacodyl) 5 Mg Tablet. 5 Mg PO PRN DAILY PRN Aspirin Ec (Aspirin) 81 Mg Tablet.dr 81 Mg PO Allergies Allergies: Coded Allergies: I S O L A T I O N *CONTACT* (Verified Allergy, Unknown, 11/20/16) mrsa adhesive tape (Verified Allergy, Unknown, 11/13/16) lisinopril (Verified Allergy, Unknown, 11/13/16) ROS General: YES: Other (fevers) PSYCHOLOGICAL ROS: No: Anxiety, Behavioral Disorder, Concentration difficultie , Decreased libido, Depression, Disorientation, Hallucinations, Hostility, Irritablity, Memory difficulties, Mood Swings, Obsessive thoughts, Other, Physical abuse, Sexual abuse, Sleep disturbances, Suicidal ideation Eyes: No Blurry vision, No Decreased vision, No Double vision, No Dry eyes, No Excessive tearing, No Eye Pain, No Itchy Eyes, No Loss of vision, No Other, No Photophobia, No Scotomata, No Uses contacts, No Uses glasses HEENT: No: Epistaxis, Heacaches, Hearing change, Nasal congestion, Nasal discharge, Oral lesions, Other, Sinus pain, Sneezing, Snoring, Sore Throat, Tinnitus, Vertigo, Visual Changes, Vocal changes Hematological and Lymphatic: No: Bleeding Problems, Blood Clots, Blood Transfusions, Brusing, Night Sweats, Other, Pallor, Swollen Lymph Nodes ENDOCRINE: No: Breast Changes, Galactorrhea, Hair Pattern Changes, Hot Flashes , Malaise/lethargy, Mood Swings, Other, Palpitations, Polydipsia/polyuria, Skin Changes, Temperature Intolerance, Unexpected Weight Changes Breast: No New/Changing Breast Lumps, No Nipple changes, No Nipple discharge, No Other Cardiovascular: No Chest Pain, No Edema, No Lt Headedness, No Orthopnea, No Other, No Palpitations, No Paroxysmal Noc. Dyspnea Gastrointestinal: Yes Abdominal Pain, Yes Diarrhea, Yes Nausea Genitourinary: No , No , No , No , No , No , No , No Discharge, No Dysuria, No Flank Pain, No Frequency, No Hematuria, No Incontinence, No Other, No Pain, No Retention, No Urgency Musculoskeletal: No Gait Disturbance, No Joint Pain, No Joint Stiffness, No Joint Swelling, No Muscle Pain, No Muscular Weakness, No Other, No Pain In:, No Swelling In: Neurological: No Behavorial Changes, No Bowel/Bladder ControlChng, No Confusion , No Dizziness, No Gait Disturbance, No Headaches, No Impaired Coord/balance, No Memory Loss, No Numbness/Tingling, No Other, No Seizures, No Speech Problems , No Tremors, No Visual Changes, No Weakness Skin: No Acne, No Dry Skin, No Eczema, No Hair Changes, No Lumps, No Mole Changes, No Mottling, No Nail Changes, No Other, No Pruritus, No Rash, No Skin Lesion Changes Physical Exam General: Alert, Oriented X3, Cooperative, No acute distress HEENT: Atraumatic, PERRLA Lungs: Clear to auscultation, Normal air movement Heart: S1S2, RRR, no thrills, no rubs, no gallops Cardiovascular: S1, S2 Breasts: Normal Abdomen: Soft, Other (tenderness left side) Rectal Exam: not examined PELVIC: Nml ext genitalia Extremities: No clubbing, No cyanosis, No edema, Normal pulses, No tenderness/ swelling Skin: No rashes, No breakdown, No significant lesion Neuro: Normal gait, Normal speech, Strength at 5/5 X4 ext, Normal tone, Sensation intact, Cranial nerves 3-12 NL, Reflexes 2+ Psych/Mental Status: Mental status NL, Mood NL Vitals Vitals Vital Signs Date Time Temp Pulse Resp B/P Pulse Ox O2 Delivery O2 Flow Rate FiO2 12/31/16 16:00 101.1 113 32 143/80 91 Nasal Cannula 2 101.1 Labs Labs Laboratory Tests Test 12/31/16 16:08 12/31/16 17:05 12/31/16 17:18 White Blood Count 11.7x10^3/uL (4.0-11.0) Red Blood Count 3.07x10^6/uL (3.50-5.40) Hemoglobin 8.6g/dL (12.0-15.5) Hematocrit 27.1% (36.0-47.0) Mean Corpuscular Volume 88fL (79-100) Mean Corpuscular Hemoglobin 28pg (25-35) Mean Corpuscular Hemoglobin Concent 32g/dL (31-37) Red Cell Distribution Width 17.2% (11.5-14.5) Platelet Count 287x10^3/uL (140-400) Neutrophils (%) (Auto) 79% (31-73) Lymphocytes (%) (Auto) 13% (24-48) Monocytes (%) (Auto) 6% (0-9) Eosinophils (%) (Auto) 2% (0-3) Basophils (%) (Auto) 1% (0-3) Neutrophils # (Auto) 9.2x10^3uL (1.8-7.7) Lymphocytes # (Auto) 1.6x10^3/uL (1.0-4.8) Monocytes # (Auto) 0.7x10^3/uL (0.0-1.1) Eosinophils # (Auto) 0.2x10^3/uL (0.0-0.7) Basophils # (Auto) 0.1x10^3/uL (0.0-0.2) Prothrombin Time 19.8SEC (11.7-14.0) Prothromb Time International Ratio 1.8 (0.8-1.1) D-Dimer (Elizabeth) 0.97ug/mlFEU (0.00-0.50) Sodium Level 139mmol/L (136-145) Potassium Level 4.6mmol/L (3.5-5.1) Chloride Level 102mmol/L (98-107) Carbon Dioxide Level 26mmol/L (21-32) Anion Gap 11 (6-14) Blood Urea Nitrogen 38mg/dL (7-20) Creatinine 1.4mg/dL (0.6-1.0) Estimated GFR (Cockcroft-Gault) 38.8 BUN/Creatinine Ratio 27 (6-20) Glucose Level 134mg/dL (70-99) Calcium Level 9.0mg/dL (8.5-10.1) Total Bilirubin 0.3mg/dL (0.2-1.0) Aspartate Amino Transf (AST/SGOT) 17U/L (15-37) Alanine Aminotransferase (ALT/SGPT) 18U/L (14-59) Alkaline Phosphatase 62U/L (46-116) Total Protein 7.0g/dL (6.4-8.2) Albumin 2.7g/dL (3.4-5.0) Albumin/Globulin Ratio 0.6 (1.0-1.7) Lactic Acid Level 1.3mmol/L (0.4-2.0) Urine Collection Type U cath Urine Color Yellow Urine Clarity Cloudy Urine pH 5.5 Urine Specific [place] 1.015 Urine Protein >=300mg/dL (NEG-TRACE) Urine Glucose (UA) Negativemg/dL (NEG) Urine Ketones (Stick) Negativemg/dL (NEG) Urine Blood Moderate (NEG) Urine Nitrite Negative (NEG) Urine Bilirubin Negative (NEG) Urine Urobilinogen Dipstick 0.2mg/dL (0.2 mg/dL) Urine Leukocyte Esterase Moderate (NEG) Urine RBC 6-10/HPF (0-2) Urine WBC 5-10/HPF (0-4) Urine Squamous Epithelial Cells Few/LPF Urine Transitional Epithelial Cells Occ/LPF Urine Bacteria Few/HPF (0-FEW) Urine Mucus Slight/LPF Stool Occult Blood Positive (NEG) Laboratory Tests Test 12/31/16 16:08 12/31/16 17:05 12/31/16 17:18 White Blood Count 11.7x10^3/uL (4.0-11.0) Red Blood Count 3.07x10^6/uL (3.50-5.40) Hemoglobin 8.6g/dL (12.0-15.5) Hematocrit 27.1% (36.0-47.0) Mean Corpuscular Volume 88fL (79-100) Mean Corpuscular Hemoglobin 28pg (25-35) Mean Corpuscular Hemoglobin Concent 32g/dL (31-37) Red Cell Distribution Width 17.2% (11.5-14.5) Platelet Count 287x10^3/uL (140-400) Neutrophils (%) (Auto) 79% (31-73) Lymphocytes (%) (Auto) 13% (24-48) Monocytes (%) (Auto) 6% (0-9) Eosinophils (%) (Auto) 2% (0-3) Basophils (%) (Auto) 1% (0-3) Neutrophils # (Auto) 9.2x10^3uL (1.8-7.7) Lymphocytes # (Auto) 1.6x10^3/uL (1.0-4.8) Monocytes # (Auto) 0.7x10^3/uL (0.0-1.1) Eosinophils # (Auto) 0.2x10^3/uL (0.0-0.7) Basophils # (Auto) 0.1x10^3/uL (0.0-0.2) Prothrombin Time 19.8SEC (11.7-14.0) Prothromb Time International Ratio 1.8 (0.8-1.1) D-Dimer (Elizabeth) 0.97ug/mlFEU (0.00-0.50) Sodium Level 139mmol/L (136-145) Potassium Level 4.6mmol/L (3.5-5.1) Chloride Level 102mmol/L (98-107) Carbon Dioxide Level 26mmol/L (21-32) Anion Gap 11 (6-14) Blood Urea Nitrogen 38mg/dL (7-20) Creatinine 1.4mg/dL (0.6-1.0) Estimated GFR (Cockcroft-Gault) 38.8 BUN/Creatinine Ratio 27 (6-20) Glucose Level 134mg/dL (70-99) Calcium Level 9.0mg/dL (8.5-10.1) Total Bilirubin 0.3mg/dL (0.2-1.0) Aspartate Amino Transf (AST/SGOT) 17U/L (15-37) Alanine Aminotransferase (ALT/SGPT) 18U/L (14-59) Alkaline Phosphatase 62U/L (46-116) Total Protein 7.0g/dL (6.4-8.2) Albumin 2.7g/dL (3.4-5.0) Albumin/Globulin Ratio 0.6 (1.0-1.7) Lactic Acid Level 1.3mmol/L (0.4-2.0) Urine Collection Type U cath Urine Color Yellow Urine Clarity Cloudy Urine pH 5.5 Urine Specific [place] 1.015 Urine Protein >=300mg/dL (NEG-TRACE) Urine Glucose (UA) Negativemg/dL (NEG) Urine Ketones (Stick) Negativemg/dL (NEG) Urine Blood Moderate (NEG) Urine Nitrite Negative (NEG) Urine Bilirubin Negative (NEG) Urine Urobilinogen Dipstick 0.2mg/dL (0.2 mg/dL) Urine Leukocyte Esterase Moderate (NEG) Urine RBC 6-10/HPF (0-2) Urine WBC 5-10/HPF (0-4) Urine Squamous Epithelial Cells Few/LPF Urine Transitional Epithelial Cells Occ/LPF Urine Bacteria Few/HPF (0-FEW) Urine Mucus Slight/LPF Stool Occult Blood Positive (NEG) VTE Prophylaxis Ordered VTE Prophylaxis Devices: Contraindicated VTE Pharmacological Prophylaxi: Contraindicated Assessment/Plan Assessment/Plan 1. Colitis vs proctocolitis on CT 2. heme positive stools 3. Hx ANUM on ferrous sulfate 4. Hip sx 2 mos ago at [facility] on warfarin, lovenox and ASA 81 5. Subtherapeutic iNR 6. DM 2 with end organ damaeg, amputated toes, neuropathy 7. HTN 8. Diastolic heart failure? vs leg edema on diuretics PLAN: Admit 2 [place] Reyna tele [facility]itor for worsening anemia and gI bleed GI consult| Cont ferrous sulfate PPI Hold AC and nsaids I did cont lasix and losartan - crea might be her baseline SCDs PT/OT check ESR Dw ER Seen at ER GO ARAUJO MD Dec 31, 2016 19:09"
--- NOTE | 2016-12-31 19:14 | RAD ---
Examination: Ultrasound bilateral lower extremity venous History: History of bilateral lower extremity swelling or ankle. TECHNIQUE Grayscale, color Doppler 2D, spectral waveform analysis of the bilateral lower extremity venous system were performed Findings The visualized common femoral vein, superficial femoral vein, popliteal vein demonstrate normal compression augmentation of flow. The visualized calf veins are patent. Examination is limited due to patient body habitus and due to bilateral lower extremity edema. IMPRESSION 1. No evidence of deep venous thrombosis identified in the bilateral lower extremity venous system. 2. Bilateral lower extremity edema. Electronically signed by: Abelardo Yu (Dec 31, 2016 19:13:13)
[2016-12-31] MEDS ORDERED: CARVEDILOL 3.125 MG TABLET. PO SCH (19:30)
[2016-12-31] MEDS ORDERED: ONDANSETRON ODT 4 MG TAB.RAPDIS. PO PRN (19:30)
[2016-12-31] MEDS ORDERED: MORPHINE SULFATE 4 MG/ML DISP.SYRIN. IV ONE (20:30)
[2016-12-31] MEDS ORDERED: MORPHINE SULFATE 4 MG/ML DISP.SYRIN. IV PRN (21:00)
[2016-12-31] MEDS ORDERED: CEFTRIAXONE SODIUM 1 GM in IV NORMAL SALINE 50ML 50 ML IV SCH (21:00)
[2016-12-31] MEDS ORDERED: ATORVASTATIN CALCIUM 40 MG TABLET. PO SCH (21:00)
[2016-12-31] MEDS ORDERED: GABAPENTIN 400 MG CAPSULE. PO SCH (21:00)
[2016-12-31] MEDS ORDERED: CYCLOBENZAPRINE 10 MG TABLET. PO SCH (21:00)
--- NOTE | 2016-12-31 22:10 | EKG ---
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
--- NOTE | 2016-12-31 22:16 | ACF ---
Admission Forms Criteria ABDOMINAL PAIN Clinical Indications for Admission to Inpatient Care (Place 'X' for any and all applicable criteria): Admission is indicated for ANY ONE of the following(1)(2)(3)(4)(5): [ ]I. Inpatient admission required rather than observation care (Also use Abdominal Pain: Observation Care, as appropriate) because of ANY ONE of the following: [ ]a) Severe pain requiring acute inpatient management [ ]b) Identification of etiology/finding that requires inpatient care (eg, aortic dissection, free air) [ ]c) Absent bowel sounds with complete ileus(6) [ ]d) Suspected toxic megacolon [ ]e) Severe electrolyte abnormalities requiring inpatient care [ ]f) High fever or infection requiring inpatient admission as indicated by ANY ONE of following(7)(8): [ ] i) Appropriate outpatient or observational care antimicrobial treatment unavailable, not effective, or not feasible [ ] ii) Documented bacteremia [ ] iii) Temperature > 104.9 degrees F (oral) [ ] iv) T >103.1 F (oral) or < 96.8 F(rectal) that does not respond to all emergency treatment measures [ ]g) Signs of intestinal obstruction [B] [ ]h) Hemodynamic instability [ ]i) IV fluid to replace significant ongoing losses (greater than 3 L/m2 per day) (12)(13) [ ]j) Percutaneous or open drainage (eg, abscess, biliary tract ) procedures [ ]k) Parenteral nutrition regimen that must be implemented on inpatient basis [ ]l) Other condition,treatment or monitoring requiring inpatient admission. [ ]II. Peritoneal signs present [ ]III. Surgery needed that cannot be performed on an ambulatory basis. [ ]IV. Evaluation requires patient to not eat or drink for extended period ( eg, more than 24 hours). [ ]V. Contraindications and/or Inappropriate clinical situations for Observational Care in patients with abdominal pain, when ANY ONE of the following is required: [ ]a) Thorough evaluation is required to prevent catastrophic events due to delays in diagnosing (e.g.Mesenteric ischemia) 1,3 [ ]b) Patient with severe pathology or with chronic symptoms unlikely to improve in the ED stay (3) [X]. General contraindications and/or Inappropriate clinical situations for Observational Care in patients with abdominal pain, when ANY ONE of the following is required: [X]a) Prediction of prolongation of LOS based on ANY ONE of the following may be considered as a contraindication for observational care 2, 3, 4, 5, 6, 7, 8, 9, 10, 11 [ ]i) Age > 65 yrs. [ ]ii) Patient arriving by ambulance [ ]iii) Patient with high acuity [X]iv) Patient requiring vital sign monitoring [ ]v) Patient on IV medication [ ]b) Systolic blood pressures 180mmHg 3,12 [ ]c) Patient with altered mental status including delirium and other alteration of consciousness, (3) [ ]d) Patient whose discharge disposition will be to a intermediate home or rehabilitation home should not be managed in Emergency Department Observation Unit. CMS rule requires 3 days hospital stay before such placement.3,13 [ ]e) Patient with failure to thrive due to broad array of etiologies 3,16,17 [ ]f) Inability to ambulate 3,14 Extended stay beyond goal length of stay may be needed for(2)(3): [ ]a) Persistent abdominal pain with suspected intra-abdominal process [ ]b) Diagnosed condition requiring continued stay (e.g., pancreatitis, complicated diverticulitis) [ ]c) Surgery (e.g., colectomy) The original [employer] [email or web address] content created by [employer] has been revised. The portions of the content which have been revised are identified through the use of italic text or in bold, and [email or web address] has neither reviewed nor approved the modified material.All other unmodified content is copyright [employer]. Please see references footnoted in the original [employer] edition 2016 Admission Criteria Met?: Yes MAHNAZ AGUILERA Dec 31, 2016 22:16
--- NOTE | 2016-12-31 22:48 | PDOC3 ---
Discharge Summary Visit Information Date of Admission: Dec 31, 2016 Date of Discharge: Dec 31, 2016 Admitting Diagnosis Comment: 1. Colitis vs proctocolitis on CT 2. heme positive stools 3. Hx ANUM on ferrous sulfate 4. Hip sx 2 mos ago at on warfarin, lovenox and ASA 81 5. Subtherapeutic iNR 6. DM 2 with end organ damaeg, amputated toes, neuropathy 7. HTN 8. Diastolic heart failure? vs leg edema on diuretics Final Diagnosis Problems Medical Problems: (1) Colitis Status: Acute (2) Fever Status: Acute (3) GI bleed Status: Acute Brief Hospital Course Allergies Allergies Coded Allergies Type Severity Reaction Last Updated Verified I S O L A T I O N *CONTACT* Allergy Unknown 11/20/16 Yes adhesive tape Allergy Unknown 11/13/16 Yes lisinopril Allergy Unknown 11/13/16 Yes Vital Signs Vital Signs Date Time Temp Pulse Resp B/P Pulse Ox O2 Delivery O2 Flow Rate FiO2 12/31/16 20:43 Room Air 12/31/16 16:00 101.1 113 32 143/80 91 2 101.1 Lab Results Laboratory Tests Test 12/31/16 16:08 12/31/16 17:05 12/31/16 17:18 White Blood Count 11.7x10^3/uL (4.0-11.0) Red Blood Count 3.07x10^6/uL (3.50-5.40) Hemoglobin 8.6g/dL (12.0-15.5) Hematocrit 27.1% (36.0-47.0) Mean Corpuscular Volume 88fL (79-100) Mean Corpuscular Hemoglobin 28pg (25-35) Mean Corpuscular Hemoglobin Concent 32g/dL (31-37) Red Cell Distribution Width 17.2% (11.5-14.5) Platelet Count 287x10^3/uL (140-400) Neutrophils (%) (Auto) 79% (31-73) Lymphocytes (%) (Auto) 13% (24-48) Monocytes (%) (Auto) 6% (0-9) Eosinophils (%) (Auto) 2% (0-3) Basophils (%) (Auto) 1% (0-3) Neutrophils # (Auto) 9.2x10^3uL (1.8-7.7) Lymphocytes # (Auto) 1.6x10^3/uL (1.0-4.8) Monocytes # (Auto) 0.7x10^3/uL (0.0-1.1) Eosinophils # (Auto) 0.2x10^3/uL (0.0-0.7) Basophils # (Auto) 0.1x10^3/uL (0.0-0.2) Erythrocyte Sedimentation Rate 108 (0-25) Prothrombin Time 19.8SEC (11.7-14.0) Prothromb Time International Ratio 1.8 (0.8-1.1) D-Dimer (Elizabeth) 0.97ug/mlFEU (0.00-0.50) Sodium Level 139mmol/L (136-145) Potassium Level 4.6mmol/L (3.5-5.1) Chloride Level 102mmol/L (98-107) Carbon Dioxide Level 26mmol/L (21-32) Anion Gap 11 (6-14) Blood Urea Nitrogen 38mg/dL (7-20) Creatinine 1.4mg/dL (0.6-1.0) Estimated GFR (Cockcroft-Gault) 38.8 BUN/Creatinine Ratio 27 (6-20) Glucose Level 134mg/dL (70-99) Calcium Level 9.0mg/dL (8.5-10.1) Total Bilirubin 0.3mg/dL (0.2-1.0) Aspartate Amino Transf (AST/SGOT) 17U/L (15-37) Alanine Aminotransferase (ALT/SGPT) 18U/L (14-59) Alkaline Phosphatase 62U/L (46-116) Total Protein 7.0g/dL (6.4-8.2) Albumin 2.7g/dL (3.4-5.0) Albumin/Globulin Ratio 0.6 (1.0-1.7) Lactic Acid Level 1.3mmol/L (0.4-2.0) Urine Collection Type U cath Urine Color Yellow Urine Clarity Cloudy Urine pH 5.5 Urine Specific [place] 1.015 Urine Protein >=300mg/dL (NEG-TRACE) Urine Glucose (UA) Negativemg/dL (NEG) Urine Ketones (Stick) Negativemg/dL (NEG) Urine Blood Moderate (NEG) Urine Nitrite Negative (NEG) Urine Bilirubin Negative (NEG) Urine Urobilinogen Dipstick 0.2mg/dL (0.2 mg/dL) Urine Leukocyte Esterase Moderate (NEG) Urine RBC 6-10/HPF (0-2) Urine WBC 5-10/HPF (0-4) Urine Squamous Epithelial Cells Few/LPF Urine Transitional Epithelial Cells Occ/LPF Urine Bacteria Few/HPF (0-FEW) Urine Mucus Slight/LPF Stool Occult Blood Positive (NEG) Laboratory Tests Test 12/31/16 16:08 12/31/16 17:05 12/31/16 17:18 White Blood Count 11.7x10^3/uL (4.0-11.0) Red Blood Count 3.07x10^6/uL (3.50-5.40) Hemoglobin 8.6g/dL (12.0-15.5) Hematocrit 27.1% (36.0-47.0) Mean Corpuscular Volume 88fL (79-100) Mean Corpuscular Hemoglobin 28pg (25-35) Mean Corpuscular Hemoglobin Concent 32g/dL (31-37) Red Cell Distribution Width 17.2% (11.5-14.5) Platelet Count 287x10^3/uL (140-400) Neutrophils (%) (Auto) 79% (31-73) Lymphocytes (%) (Auto) 13% (24-48) Monocytes (%) (Auto) 6% (0-9) Eosinophils (%) (Auto) 2% (0-3) Basophils (%) (Auto) 1% (0-3) Neutrophils # (Auto) 9.2x10^3uL (1.8-7.7) Lymphocytes # (Auto) 1.6x10^3/uL (1.0-4.8) Monocytes # (Auto) 0.7x10^3/uL (0.0-1.1) Eosinophils # (Auto) 0.2x10^3/uL (0.0-0.7) Basophils # (Auto) 0.1x10^3/uL (0.0-0.2) Erythrocyte Sedimentation Rate 108 (0-25) Prothrombin Time 19.8SEC (11.7-14.0) Prothromb Time International Ratio 1.8 (0.8-1.1) D-Dimer (Elizabeth) 0.97ug/mlFEU (0.00-0.50) Sodium Level 139mmol/L (136-145) Potassium Level 4.6mmol/L (3.5-5.1) Chloride Level 102mmol/L (98-107) Carbon Dioxide Level 26mmol/L (21-32) Anion Gap 11 (6-14) Blood Urea Nitrogen 38mg/dL (7-20) Creatinine 1.4mg/dL (0.6-1.0) Estimated GFR (Cockcroft-Gault) 38.8 BUN/Creatinine Ratio 27 (6-20) Glucose Level 134mg/dL (70-99) Calcium Level 9.0mg/dL (8.5-10.1) Total Bilirubin 0.3mg/dL (0.2-1.0) Aspartate Amino Transf (AST/SGOT) 17U/L (15-37) Alanine Aminotransferase (ALT/SGPT) 18U/L (14-59) Alkaline Phosphatase 62U/L (46-116) Total Protein 7.0g/dL (6.4-8.2) Albumin 2.7g/dL (3.4-5.0) Albumin/Globulin Ratio 0.6 (1.0-1.7) Lactic Acid Level 1.3mmol/L (0.4-2.0) Urine Collection Type U cath Urine Color Yellow Urine Clarity Cloudy Urine pH 5.5 Urine Specific [place] 1.015 Urine Protein >=300mg/dL (NEG-TRACE) Urine Glucose (UA) Negativemg/dL (NEG) Urine Ketones (Stick) Negativemg/dL (NEG) Urine Blood Moderate (NEG) Urine Nitrite Negative (NEG) Urine Bilirubin Negative (NEG) Urine Urobilinogen Dipstick 0.2mg/dL (0.2 mg/dL) Urine Leukocyte Esterase Moderate (NEG) Urine RBC 6-10/HPF (0-2) Urine WBC 5-10/HPF (0-4) Urine Squamous Epithelial Cells Few/LPF Urine Transitional Epithelial Cells Occ/LPF Urine Bacteria Few/HPF (0-FEW) Urine Mucus Slight/LPF Stool Occult Blood Positive (NEG) Brief Hospital Course Ms. Vitale is a 56 old [sex] who presented with [ ] History of Present Illness History of Present Illness 56 y.o obese female, rather poor historian, resident of [facility] sent in [facility] of left sided abd pain, black stools. On ferrous sulfate , but also takes ASA, lovenox and warfarin likely from a Rt hip sx she had done Oct 2016 at ,. She actually follows at (wants to transfer to ), but was sent here bec we are the nearest facility. VS ok, BP on high side but febrile, bucket at bedside, nauseaus. 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 FOBT positive at ER, hgb 8, WBC 11 on pred- chronically sounds like. Sinus tachy 113, mildy tachypneic CT abd shows proctocoliyis or colitis, no esr. Atelectasis and small pleural effusion, hardware seen on Rt hip within 5 hrs, dtr came and pressed on transferring pt to , had bed avail and accepted. Pt never came up to the floors. Pt seen and examined at ER, dw Dr. Verma Discharge Information Condition at Discharge: Comment (transfer to ) Disposition/Orders: D/C to Another Facility Scheduled Carvedilol (Carvedilol) 1 TAB PO BID (Reported) Cyclobenzaprine Hcl (Cyclobenzaprine Hcl) 5 MG PO TID (Reported) Ferrous Sulfate (Feosol) 325 MG PO DAILY (Reported) Furosemide (Furosemide) 40 MG PO DAILY (Reported) Gabapentin (Neurontin) 400 MG PO TID (Reported) Losartan Potassium (Cozaar) 25 MG PO DAILY (Reported) Rosuvastatin Calcium (Crestor) 1 TAB PO DAILY (Reported) Spironolactone (Aldactone) 25 MG PO DAILY (Reported) Warfarin Sodium (Coumadin) 5 MG PO DAILY (Reported) Scheduled PRN Bisacodyl (Dulcolax) 5 MG PO PRN DAILY PRN PRN CONSTIPATION (Reported) Nitroglycerin (Nitrostat) 0.4 MG SL PRN Q5MIN PRN PRN CHEST PAIN (Reported) Ondansetron Hcl (Zofran) 4 MG PO BID PRN PRN NAUSEA/VOMITING (Reported) Oxycodone Hcl (Oxycodone Hcl) 5 MG PO PRN PAIN (Reported) Miscellaneous Medications Aspirin (Aspirin Ec) 81 MG PO (Reported) Enoxaparin Sodium (Lovenox) 80 MG SQ (Reported) Prednisone (Deltasone) 20 MG PO (Reported) GO ARAUJO MD Dec 31, 2016 22:48
[2017-01-01] MEDS ORDERED: SPIRONOLACTONE 25 MG TABLET PO SCH (09:00)
[2017-01-01] MEDS ORDERED: FUROSEMIDE 40 MG TABLET. PO SCH (09:00)
[2017-01-01] MEDS ORDERED: PREDNISONE 20 MG TABLET PO SCH (09:00)
[2017-01-01] MEDS ORDERED: FERROUS SULFATE 325 MG TABLET. PO SCH (09:00)
[2017-01-01] MEDS ORDERED: LOSARTAN POTASSIUM 25 MG TABLET. PO SCH (09:00)
== END 2016-12-31 21:19 | disposition short-term general hospital (02) ==
LOC: ER 15:47 → UNDOADMIN 18:00 → 6 SOUTH 18:00
DX: K92.2 Gastrointestinal hemorrhage, unspecified (principal); K52.9 Noninfective gastroenteritis and colitis, unspecified; R00.0 Tachycardia, unspecified; I25.10 Atherosclerotic heart disease of native coronary artery without angina pectoris; E11.9 Type 2 diabetes mellitus without complications; I13.0 Hypertensive heart and chronic kidney disease with heart failure and stage 1 through stage 4 chronic kidney disease, or unspecified chronic kidney disease; I50.9 Heart failure, unspecified; N18.9 Chronic kidney disease, unspecified; Z95.1 Presence of aortocoronary bypass graft; Z86.718 Personal history of other venous thrombosis and embolism; Z95.0 Presence of cardiac pacemaker; Z98.890 Other specified postprocedural states; Z88.8 Allergy status to other drugs, medicaments and biological substances; Z91.041 Radiographic dye allergy status
CPT/HCPCS: 36415; 51701; 74176; 80053; 81001; 82274; 83605; 85027; 85379; 85610; 85651; 86850; 86900; 86901; 87040; 87086; 93005; 93970; 99285; J2270; J7040